=== PATIENT | female | born 1980 | race Two or more races ===

== ENCOUNTER 2024-09-05 07:35 | Day surgery (SDC) | payer MEDICAID, SELFPAY ==
[2024-09-04 11:07] LABS: HCG Qualitative,Urine Negative
[2024-09-05] VITALS (13 sets, daily range): BP systolic 102–143; BP diastolic 67–91; PULSE 63–87; RESP 16–24; TEMP 36.2–36.8; O2SAT 95–100; BMI 31.4
[2024-09-05] MEDS: MIDAZOLAM INJ 1 MG/ML VIAL 2 ML (ASD USE ONLY) 2 MG IV (11:34)
[2024-09-05] MEDS: SODIUM CHLORIDE 0.9% 500 ML 500 ML 20 ML IV (11:34)
[2024-09-05] MEDS: DiphenhydrAMINE INJ 50 MG/ML VIAL 25 MG IV (11:35)
[2024-09-05] MEDS: fentaNYL CIT INJ 50 mCg/ML AMP 2ML (ASD USE ONLY) IV (11:35)
== END 2024-09-05 12:50 | disposition home or self-care (01) ==
PROVIDERS: PCP Family Medicine; Referring Provider Surgery; Visit Provider Surgery
PROC: 0DBE8ZX Excision of Large Intestine, Via Natural or Artificial Opening Endoscopic, Diagnostic (ICD-10-PCS; CPT 45380; principal; 2024-09-05 10:00)
DX: K62.0 Anal polyp (principal); D12.8 Benign neoplasm of rectum; K64.8 Other hemorrhoids; K57.31 Diverticulosis of large intestine without perforation or abscess with bleeding; K63.5 Polyp of colon; K62.1 Rectal polyp
CPT/HCPCS: 45385; 45380; 81025; A4649; J1200; J2250; J3010; J7040

== ENCOUNTER 2024-09-11 13:30 | Outpatient (AMB) | payer MEDICAID, SELFPAY ==
[2024-09-11 13:48] VITALS: BP 114/75; PULSE 88; RESP 18; TEMP 36.5; O2SAT 96; BMI 31.8
--- NOTE | 2024-09-11 13:48 | GSCOFFNT_ITS ---
Vital Signs - [facility] 09/11/24 13:48 Height 1.57 m Height Method Stated Weight 78.528 kg Weight Measurement Method Standing Scale BMI 31.8 BP 114/75 Blood Pressure Source Automatic Cuff Blood Pressure Location Left Upper Arm Position Sitting Respiration 18 Pulse 88 Pulse Source Monitor Temp 97.7 F Temp Source Temporal Artery Scan Pulse Oximetry (%) 96 Oxygen Delivery Method Room Air Med/Allergies Allergies & Medications Allergies lactose Allergy (Verified 09/11/24 13:48) Diarrhea Medication Reconciliation albuterol 90 mcg/actuation aerosol inhaler 90 mcg inhalation QDAY 10/14/20 [History Confirmed 09/11/24] omeprazole 40 mg capsule,delayed release 40 mg PO QDAY 10/14/20 [History Confirmed 09/11/24] ibuprofen 800 mg tablet 800 mg PO Q6H PRN pain 09/05/24 [History Confirmed 09/11/24] MA Intake Visit Data Collection New Patient or Established: Established Patient (seen at [facility] within 3 years) Seen by Clinical Staff ONLY (RN/MA): No Reason for Visit:: FOLLOW UP Pain Present Currently: No 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: 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 PCP or OBGYN visit in last 3 months: Yes Hx Now: No Do You Feel Safe at Home: Yes Authorities Contacted: N/A Smoking Status Smoking Status: Never smoker Immunization / Flu Flu Vaccine in the Last 12 Months: No Flu Vaccine Exclusion Criteria: No Exclusion Criteria Past Medical History Past Medical History NEUROLOGIC: Negative Neurological Disorders or Seizures CARDIAC: Negative Cardiac Disorders or Congestive Heart Failure RESPIRATORY: Positive Asthma; Negative Chronic Obstructive Pulmonary Disease (COPD) GASTROINTESTINAL: Positive Gastrointestinal Disorders and Gastroesophageal Reflux Disease GENITOURINARY: Negative Genitourinary Disorders or Renal Disease REPRODUCTIVE: Positive Previous Pregnancies ENDOCRINE: Negative Endocrine Disorders, Diabetes Mellitus Type 1 or Diabetes Mellitus Type 2 HEMATOLOGIC: Negative Blood Disorders, Thalassemia or Clotting Problems OTHER HISTORY: Positive Falls, Chicken Pox and Measles; Negative Autoimmune Disease, Developmental Delay, Blood Transfusions, Anesthesia Reactions, MRSA, VRSA, Vancomycin-Resistant Enterococci, Mumps, Clostridium Difficile or Cancer Surgical History SURGICAL: Positive Section (x2) Social History SMOKING STATUS: Smoking status: Never smoker ALCOHOL: Alcohol Intake: Never HOUSING: Housing: House HPI HPI Narrative Spoke to pt with in-person marketing administrative assistant 44F here for follow up of colonoscopy attempted 09/05/24 done for +FOBT. The procedure was aborted after I was unable to traverse the colon past 50cm from t he anal verge, but pt was noted to have carpet-like polyps in the rectum, multiple of which were biopsied and pathology is hyperplastic; she also had a few hyperplastic polyps in the rectum and sigmoid as well as a <1cm tubular adenoma in the rectum. Pt states she does sometimes have upper abdominal pain, was given omeprazole for GERD but states her symptoms persist. She has never had an EGD and denies tarry stools but again confirms that her mother had stomach CA ROS Review of Systems Systems Reviewed: All systems reviewed, normal except as documented Objective/Exam General General Appearance: alert, cooperative and well groomed Resp Respiratory exam: Absent respiratory distress Results Colonoscopy and pathology reports reviewed Assessment & Plan Diagnosis / Problem List (1) Encounter to discuss colonoscopy results: Status: Acute Assessment & Plan: 44F s/p attempted colonoscopy for +FOBT 09/05/24 which was aborted due to severe tortuosity of colon at 50cm but showed numerous hyperplastic polyps in the up to the sigmoid and one <1cm tubular adenoma. I explained with an marketing administrative assistant that I have referred her to GI for repeat colonoscopy and that they may also recommend EGD to evaluate for potential polyposis. All questions were answered and pt expressed understanding Office Procedures GNS Level of Care Nursing/Assessment Patient Status: Established Patient Nursing Assessment/Reassesment: Medication Reconciliation, Update PMH in EMR and Vital Signs Coordination of Care: Complex Care and Chronic Disease 1-5, Consent,records obtained, informed consent, Education Simp Pt/Fam and Staff clarify orders Special Needs: Language special needs Established Patient Charge Established Patient Point Assignment: 85 Established Patient Point Charge: EP Level 3 (80-115) Patient Portal Questionaires Social History Living Situation History Housing: House Tobacco History Smoking Status: Never smoker Alcohol History Alcohol Intake: Never Domestic Abuse History Do You Feel Safe at Home: Yes Review of Systems Report any current symptoms Only answer those that you have currently: Past Medical History Past Medical History Have you ever been diagnosed with any of the following: Neurological Problems Seizures: No Cardiology Problems Congestive Heart Failure: No Respiratory Problems Chronic Obstructive Pulmonary Disease (COPD): No Asthma: Yes Stomache/Intestinal Problems Gastroesophageal Reflux Disease: Yes Genital/Urinary Problems Renal Disease: No Reproductive Problems Previous Pregnancies: Yes Endocrine Problems Diabetes Mellitus Type 1: No Diabetes Mellitus Type 2: No Blood Problems Thalassemia: No Clotting Problems: No Other Problems Autoimmune Disease: No Developmental Delay: No Falls: Yes Blood Transfusions: No Anesthesia Reactions: No MRSA: No VRSA: No Vancomycin-Resistant Enterococci: No Chicken Pox: Yes Measles: Yes Mumps: No Clostridium Difficile: No Cancer: No
== END 2024-09-11 14:18 | disposition home or self-care (01) ==
PROVIDERS: Supervising Provider Surgery; Visit Provider Surgery
DX: Z71.2 Person consulting for explanation of examination or test findings (principal); D12.8 Benign neoplasm of rectum; K63.5 Polyp of colon
CPT/HCPCS: 99213; G0463

== ENCOUNTER → 2024-10-24 | Outpatient (CLI) | payer OTHER, SELFPAY ==
--- NOTE | 2024-10-24 13:30 | XR_ITS ---
Examination: MRI knee arthrogram, left. Fluoroscopy AP knee 2 views Date and time of exam:October 24, 2024 1328 hours INDICATIONS: Knee pain months A timeout was completed verifying correct patient, procedure, site, positioning. The patient was placed in a supine position for the arthrogram Technique: Skin over the lateral knee is prepped. Local anesthesia obtained with 1% lidocaine, 1 cc divided doses. 22-gauge Chiba needle was passed into the knee joint anteriorly, utilizing fluoroscopic guidance. 1 cc of Isoview 300 injected confirming position of the needle tip within the knee joint. 12 cc bacteriostatic 0.9% with 0.1cc gadolinium introduced into the knee for subsequent MRI arthrogram. The patient was in satisfactory and stable condition at completion of the procedure. Estimated blood loss 0 cc. Findings: Contrast material is present within the knee joint indicating successful knee arthrogram. Impression: Successful knee arthrogram for MRI study to follow. Fluoroscopy 0.2 minute radiation dose 0.28 milligray 2 spot fluoroscopic knee films.
[2024-10-24 13:47] LABS: HCG Qualitative,Urine Negative
--- NOTE | 2024-10-24 14:00 | XR_ITS ---
Again Exam: MRI knee without contrast, with intra-articular contrast, left Left knee arthrography Date and time of exam: October 24, 2024 1437 hours Technique: Multiple axial, coronal, and sagittal sections on the knee have been obtained. T2-Weighted sagittal, fat-suppressed images, TR 3,500, TE 62, T2 weighted coronal fat-saturated images, TR 3,500, TE 62 Proton density sagittal sections, TR 1800, TE 31. T-1 weighted coronal images, TR 524, TE 13.0 Please see the left knee arthrography report Findings: Medial meniscus anterior horn intact. Medial meniscus, body is horizontal linear tear communicating inner margin. Posterior horn medial meniscus horizontal linear tear sagittal image 4. Lateral meniscus anterior horn is intact Lateral meniscus, body is intact Posterior horn lateral meniscus is intact Anterior cruciate ligament moderately attenuated Posterior cruciate ligament appears intact. Quadriceps and patellar tendons appear intact. There is no evidence of tendinosis. Inflammatory change or fracture of Hoffa's fat pad is not seen. Medial patellar facet demonstrates moderate thinning. Lateral patellar facet cartilage demonstrates moderate thinning. Trochlear cartilage demonstrates moderate thinning. Marrow signal adequate. Medial collateral ligament appears intact. No meniscocapsular separation is seen. Illiotibial band and fibular collateral ligament are intact. Biceps femoris tendons appear intact. Medial femoral condylar articular cartilage demonstrates moderate thinning. Lateral femoral condylar articular cartilage demonstratesmild thinning. Tibial plateau cartilage demonstrates moderate medial thinning. Impression: Horizontal linear tear as body and posterior horn medial meniscus
== END | disposition home or self-care (01) ==
LOC: SIRX 12:30
PROVIDERS: PCP Family Medicine; Referring Provider Preventive Medicine Occupational Medicine; Visit Provider Preventive Medicine Occupational Medicine
DX: S80.02XD Contusion of left knee, subsequent encounter (principal); S80.01XD Contusion of right knee, subsequent encounter; X58.XXXD Exposure to other specified factors, subsequent encounter; S83.242A Other tear of medial meniscus, current injury, left knee, initial encounter; X58.XXXA Exposure to other specified factors, initial encounter
CPT/HCPCS: 27369; 73580; 73722; 81025